=== PATIENT | female | born 1940 | race Caucasian/White ===

== ENCOUNTER 2020-12-28 19:15 | Outpatient (CLI) | payer MEDICARE, SELFPAY ==
[2020-12-28 19:59] LABS: Alanine Aminotransferase 46 U/L (0-33); Albumin Level 3.3 g/dL (3.5-5.2); Alkaline Phosphatase 87 IU/L (35-105); Anion Gap 11.4 (5-19); Aspartate Amino Transferase 32 U/L (0-32); Blood Urea Nitrogen 54 mg/dL (8-23); Calcium 9.5 mg/dL (8.5-10.5); Carbon Dioxide 40 mmol/L (22-29); Chloride 86 mmol/L (98-107); Glucose 141 mg/dL (65-115); Osmolality Calculated 295 mOsm/kg (285-295); Potassium 3.4 mmol/L (3.5-5.1); Sodium 134 mmol/L (136-145); Total Bilirubin 0.2 mg/dL (0.15-1.2); Total Protein 6.3 g/dL (6.6-8.7)
== END 2020-12-28 19:16 | disposition home or self-care (01) ==
LOC: LAB 19:26
PROVIDERS: Visit Provider Internal Medicine
DX: Z51.81 Encounter for therapeutic drug level monitoring (principal)
CPT/HCPCS: 80053